=== PATIENT | female | born 1985 | race Hispanic/Latino ===

== ENCOUNTER 2018-05-15 09:44 | Observation (INO) | payer OTHER ==
--- NOTE | 2018-05-15 09:56 | ED PDOC ---
Arrival/HPI - General Chief Complaint: GI Problem Time Seen by Provider: 05/15/18 09:45 - History of Present Illness Narrative History of Present Illness (Text): 05/15/18 09:56 A 33 y/o w/ h/o bacterial infection, presents to the emergency department complaining of abdominal pain since yesterday. Patient reports associated watery diarrhea, chills and nausea. Patient notes laying down exacerbates pain and she has taken no medication for pain. Patient reports she and her family ate fast food near time of onset and her LNMP was last month. Patient also notes she is a smoker and smokes around 4 packs a week or 1 day each day. Patient denies any fever, shortness of breath, chest pain, dysuria, hematuria, vomiting, back pain, neck pain, headache, dizziness, or any other complaints. PMD: Dr. Ketty Gagnon Time/Duration: 24 hours (yesterday) Symptom Onset: Gradual Symptom Course: Unchanged Quality: Throbbing Activities at Onset: Light Context: Home Past Medical History - Provider Review Nursing Documentation Reviewed: Yes - Infectious Disease Hx of Infectious Diseases: None - Reproductive Menopause: No - Psychiatric Hx Substance Use: No - Surgical History Hx Cardiac Catheterization: Yes - Anesthesia Hx Anesthesia Reactions: No Family/Social History - Physician Review Nursing Documentation Reviewed: Yes Family/Social History: Unknown Family HX Smoking Status: Never Smoked Hx Alcohol Use: No Hx Substance Use: No Allergies/Home Meds Allergies/Adverse Reactions: Allergies No Known Allergies Allergy (Verified 01/01/16 18:11) Home Medications: Home Meds Medication Instructions Recorded Confirmed No Known Home Med 01/01/16 05/15/18 Review of Systems - Physician Review All systems were reviewed & negative as marked: Yes - Review of Systems Constitutional: Night Sweats. absent: Fevers Respiratory: absent: SOB Cardiovascular: absent: Chest Pain Gastrointestinal: Abdominal Pain, Diarrhea, Nausea. absent: Vomiting Genitourinary Female: absent: Dysuria, Hematuria, Urine Output Changes Musculoskeletal: absent: Back Pain, Neck Pain Neurological: absent: Headache, Dizziness Physical Exam Vital Signs Reviewed: Yes Vital Signs Temp Pulse Resp BP Pulse Ox 05/15/18 11:44 98 F 83 18 111/71 98 05/15/18 09:46 98.4 F 102 H 18 132/90 99 Temperature: Afebrile Blood Pressure: Normal Pulse: Tachycardic Respiratory Rate: Normal Appearance: Positive for: Well-Appearing, Non-Toxic, Comfortable Pain Distress: None Mental Status: Positive for: Alert and Oriented X 3 - Systems Exam Head: Present: Atraumatic, Normocephalic Pupils: Present: PERRL Extroacular Muscles: Present: EOMI Conjunctiva: Present: Normal Mouth: Present: Moist Mucous Membranes Neck: Present: Normal Range of Motion Respiratory/Chest: Present: Clear to Auscultation, Good Air Exchange. No: Respiratory Distress, Accessory Muscle Use Cardiovascular: Present: Regular Rate and Rhythm, Normal S1, S2. No: Murmurs Abdomen: Present: Tenderness (+epigastric area). No: Distention, Peritoneal Signs, Rebound, Guarding, McBurney's Point Tender, Rovsing's Sign Present, Hernias, Feeding Tubes, Ostomy Tubes, Mass/Organomegaly Back: Present: Normal Inspection Upper Extremity: Present: Normal Inspection. No: Cyanosis, Edema Lower Extremity: Present: Normal Inspection. No: Edema Neurological: Present: GCS=15, CN II-XII Intact, Speech Normal Skin: Present: Warm, Normal Color, Diaphoretic. No: Dry, Rashes, Erythematous, Induration, Hot, Cold, Pale, Laceration, Abscess, Abrasion Psychiatric: Present: Alert, Oriented x 3, Normal Insight, Normal Concentration Medical Decision Making ED Course and Treatment: 05/15/18 10:00 Impression: 33 year old female presents to the emergency department for abdominal pain. Differential Diagnosis included but are not limited to: - Cholitis - Gastritis - H. Pylori infection - Pancreatitis Plan: -- CT of Abdomen & Pelvis with contrast -- Labs -- Maalox -- Cipro IVPB's -- Pepcid -- Flagyl IVPB's -- Reglan -- Morphine -- IV Fluids -- CDiff toxin and antigen -- Stool culture -- POC urine test -- Urinalysis -- Reassess and disposition Prior Visits: Notes and results from previous visits were reviewed. Progress Notes: 05/15/18 12:15 Dictator: Scott Reece MD Procedure: CT Abdomen and Pelvis with contrast Impression: No acute findings. 05/15/18 12:[address] Toledo, who is aware patient is in emergency room and accepts patient for observation. - Lab Interpretations Lab Results: 05/15/18 10:15 05/15/18 10:15 Lab Results 05/15/18 10:15: Sodium 143, Potassium 5.0, Chloride 105, Carbon Dioxide 24, Anion Gap 20, BUN 14, Creatinine 0.7, Est GFR ( Amer) > 60, Est GFR (Non- Af Amer) > 60, Random Glucose 125 H, Calcium 10.5, Total Bilirubin 0.5, AST 31, ALT 40, Alkaline Phosphatase 119, Total Protein 9.4 H, Albumin 5.2 H, Globulin 4.2, Albumin/Globulin Ratio 1.2 05/15/18 10:15: WBC 15.3 H D, RBC 5.30, Hgb 15.1, Hct 45.4, MCV 85.7, MCH 28.5, MCHC 33.3, RDW 13.5, Plt Count 399, MPV 9.4, Gran % 84.4 H, Lymph % (Auto) 11.3 L, [place] % (Auto) 3.9, Eos % (Auto) 0.3 L, Baso % (Auto) 0.1, Gran # 12.94 H, Lymph # (Auto) 1.7, [place] # (Auto) 0.6, Eos # (Auto) 0.0, Baso # (Auto) 0.02 - RAD Interpretation Radiology Orders: 05/15/18 10:11 ABDOMEN & PELVIS [ABD & PELVIS IV CONTRAST ONLY] [CT] Stat - Medication Orders Current Medication Orders: Ciprofloxacin (Cipro 400mg/200ml Dsw) 400 mg in 200 mls @ 133.3 mls/hr IVPB STAT STA PRN Reason: Protocol Stop: 05/15/18 12:37 Discontinued Medications Al Hydrox/Mg Hydrox/Simethicone (Maalox Plus 30 Ml) 30 ml PO STAT STA Stop: 05/15/18 10:00 Last Admin: 05/15/18 10:20 Dose: 30 ml Famotidine (Pepcid) 20 mg IVP STAT STA Stop: 05/15/18 10:00 Last Admin: 05/15/18 10:21 Dose: 20 mg IVP Administration Document 05/15/18 10:21 [facility] (Rec: 05/15/18 10:21 [facility] [id number]) Charges for Administration # of IVP Administrations 1 Metoclopramide HCl 10 mg/ (Sodium Chloride) 52 mls @ 200 mls/hr IV STAT STA Stop: 05/15/18 10:13 Last Admin: 05/15/18 11:31 Dose: 200 mls/hr eMAR Start Stop Document 05/15/18 11:31 [employer] (Rec: 05/15/18 11:32 [employer] [id number]) Intravenous Solution Start Date 05/15/18 Start Time 11:32 End Date 05/15/18 End time 11:47 Total Infusion Time 15 Sodium Chloride (Sodium Chloride 0.9%) 1,000 mls @ 999 mls/hr IV .Q1H1M STA Stop: 05/15/18 10:58 Last Admin: 05/15/18 10:20 Dose: 999 mls/hr eMAR Start Stop Document 05/15/18 10:20 [employer] (Rec: 05/15/18 10:20 [employer] [id number]) Intravenous Solution Start Date 05/15/18 Start Time 10:20 End Date 05/15/18 End time 11:20 Total Infusion Time 60 Metronidazole (Flagyl) 500 mg in 100 mls @ 100 mls/hr IVPB STAT STA PRN Reason: Protocol Stop: 05/15/18 12:06 Last Admin: 05/15/18 11:50 Dose: 100 mls/hr eMAR Start Stop Document 05/15/18 11:50 [facility] (Rec: 05/15/18 11:51 [employer] [id number]) Intravenous Solution Start Date 05/15/18 Start Time 11:50 End Date 05/15/18 End time 12:50 Total Infusion Time 60 Morphine Sulfate (Morphine) 4 mg IVP STAT STA Stop: 05/15/18 10:13 Last Admin: 05/15/18 10:20 Dose: 4 mg MAR Pain Assessment Document 05/15/18 10:20 [employer] (Rec: 05/15/18 10:21 [employer] [id number]) Pain Reassessment Is this a pain reassessment? No IVP Administration Document 05/15/18 10:20 [employer] (Rec: 05/15/18 10:21 [employer] [id number]) Charges for Administration # of IVP Administrations 1 Re-Assess: MAR Pain Assessment Document 05/15/18 11:20 [employer] (Rec: 05/15/18 11:34 [employer] [id number]) Pain Reassessment Is this a pain reassessment? Yes Presence of Pain Presence of Pain No - Scribe Statement The provider has reviewed the documentation as recorded by the Scribe María Cortes All medical record entries made by the Scribe were at my direction and personally dictated by me. I have reviewed the chart and agree that the record accurately reflects my personal performance of the history, physical exam, medical decision making, and the department course for this patient. I have also personally directed, reviewed, and agree with the discharge instructions and disposition. Disposition/Present on Arrival - Present on Arrival Any Indicators Present on Arrival: No History of DVT/PE: No History of Uncontrolled Diabetes: No Urinary Catheter: No History of Decub. Ulcer: No History Surgical Site Infection Following: None - Disposition Have Diagnosis and Disposition been Completed?: Yes Diagnosis: Gastroenteritis Disposition Time: 12:22 Patient Plan: Observation Patient Problems: Current Active Problems Problem Status Onset Gastroenteritis Acute Condition: STABLE Discharge Instructions (ExitCare): Gastroenteritis (ED) Referrals: Ketty Gagnon DO [Primary Care Provider] - Follow up with primary Forms: [email or web address] (Qatari)
[2018-05-15] MEDS ORDERED: Sodium Chloride 0.9% 1,000 ML IV STA (09:58)
[2018-05-15] MEDS ORDERED: Alum-Mag Hydrox-Simethicone Susp (30 mL) PO STA (09:59)
[2018-05-15] MEDS ORDERED: Morphine 4 mg/ml ISec IVP STA ×2 (10:12→12:59)
[2018-05-15 10:34] LABS: BASO # 0.02 K/mm3 (0.0-2.0); BASO % 0.1 % (0.0-3.0); EOS % 0.3 % (1.5-5.0); GRAN # 12.94 (1.4-6.5); GRAN % 84.4 % (50.0-68.0); HEMOGLOBIN 15.1 g/dL (12.0-16.0); LYMPH # 1.7 (1.2-3.4); LYMPH % 11.3 % (22.0-35.0); MEAN CELL VOLUME 85.7 fl (80.0-105.0); MEAN CORPUSCULAR HEMOGLOBIN 28.5 pg (25.0-35.0); MEAN CORPUSCULAR HGB CONC 33.3 g/dl (31.0-37.0); MEAN PLATELET VOLUME 9.4 fl (7.0-11.0); MONO # 0.6 (0.1-0.6); MONO % 3.9 % (1.0-6.0); RBC 5.3 10^6/uL (3.5-6.1); RED CELL DISTRIBUTION WIDTH 13.5 % (11.5-14.5); WHITE BLOOD COUNT 15.3 10^3/ul (4.5-11.0)
[2018-05-15 10:36] LABS: ALB/GLOB RATIO 1.2 (1.1-1.8); ALBUMIN 5.2 g/dL (3.0-4.8); ALT/SGPT 40 U/L (7-56); AST/SGOT 31 U/L (14-36); BLOOD UREA NITROGEN 14 mg/dL (7-21); CALCIUM 10.5 mg/dL (8.4-10.5); GFR NON-AFRICAN AMERICAN > 60
[2018-05-15] MEDS ORDERED: Iohexol 350 MG/100 ML VIAL ONE (10:40)
[2018-05-15] MEDS ORDERED: metroNIDAZOLE IV 500 mg/100 ml 500 MG/100 ML BAG IVPB STA (11:07)
[2018-05-15] MEDS ORDERED: Ciprofloxacin 400mg/200ml D5W 400 MG/200 ML BAG IVPB STA (11:07)
--- NOTE | 2018-05-15 12:11 | CT ---
Date of service: 05/15/2018 PROCEDURE: CT Abdomen and Pelvis with contrast HISTORY: h/o colitis COMPARISON: None. TECHNIQUE: Contrast dose: 100 cc of Omni 350 Radiation dose: Total exam DLP = 732 mGy-cm. This CT exam was performed using one or more of the following dose reduction techniques: Automated exposure control, adjustment of the mA and/or kV according to patient size, and/or use of iterative reconstruction technique. FINDINGS: LOWER THORAX: Unremarkable. LIVER: Unremarkable. No gross lesion or ductal dilatation. GALLBLADDER AND BILE DUCTS: Unremarkable. PANCREAS: Unremarkable. No gross lesion or ductal dilatation. SPLEEN: Unremarkable. ADRENALS: Unremarkable. No mass. KIDNEYS AND URETERS: Unremarkable. No hydronephrosis. No solid mass. VASCULATURE: Unremarkable. No aortic aneurysm. BOWEL: Unremarkable. No obstruction. No gross mural thickening. Fluid filled large and small bowel loops are seen. APPENDIX: Normal appendix. PERITONEUM: Unremarkable. No free fluid. No free air. LYMPH NODES: Unremarkable. No enlarged lymph nodes. BLADDER: Unremarkable. REPRODUCTIVE: Unremarkable. BONES: No acute fracture. OTHER FINDINGS: None. IMPRESSION: No acute findings
[2018-05-15 16:30] VITALS: BMI 33.6
[2018-05-15] MEDS ORDERED: Pneumococcal 23-Valent Vaccine IM ONE (16:31)
[2018-05-15] MEDS: Dextrose 5%/0.45% NS 1,000 ML IV SCH (18:15)
[2018-05-15] MEDS ORDERED: Morphine 2 mg/ml ISec IVP ONE (20:27)
[2018-05-15] MEDS: metroNIDAZOLE IV 250mg/50 ml 250 MG/50 ML BAG IV SCH (20:59)
[2018-05-15] MEDS ORDERED: Morphine 4 mg/ml ISec IVP PRN (22:11)
[2018-05-16] MEDS: Dextrose 5%/0.45% NS 1,000 ML IV SCH (00:26)
[2018-05-16] MEDS: metroNIDAZOLE IV 250mg/50 ml 250 MG/50 ML BAG IV SCH ×2 (05:01→14:38)
--- NOTE | 2018-05-16 05:29 | HP ---
Copied To: Yoselyn Toledo MD Attending MD: Yoselyn Toledo MD HISTORY OF PRESENT ILLNESS: The patient is 33-year-old female who came to emergency room because of abdominal pain along with diarrhea and nausea. The patient states they ate out with her family yesterday and since then she was having some abdominal discomfort that led to intractable nausea and diarrhea. She was unable to hold food and having watery bowel movement; so, she reported to her PMD, who advised her to come to emergency room. Complaining of feeling weak and having chills. PAST MEDICAL HISTORY: Significant for chronic back pain. ALLERGIES: SHE IS NOT ALLERGIC TO ANY MEDICATION. MEDICATION AT HOME: She is on Ultracet and Flexeril as needed. SOCIAL HISTORY: She does smoke and socially drinks. REVIEW OF SYSTEMS: Significant for abdominal discomfort, nausea and diarrhea. PHYSICAL EXAMINATION: GENERAL: She is awake, alert, oriented, communicative. VITAL SIGNS: She is afebrile, pulse 73, respirations 18, blood pressure 119/73. LUNGS: Bilateral fair airflow. No rhonchi or crackles. HEART: S1 and S2 audible. ABDOMEN: Soft, nontender. Slight epigastric discomfort. NEUROLOGIC: She is awake, alert, oriented, communicative. LABORATORY EXAM: WBC is 15.3, hemoglobin 15, hematocrit 45, platelet 399. Chemistry: Sodium 143, potassium 5, chloride 105, CO2 of 24, BUN 14, creatinine 0.7, blood sugar 125. ASSESSMENT: 1. Gastroenteritis. 2. Dehydration. 3. Leukocytosis. 4. History of back pain. PLAN: We will continue the patient on IV fluid. She has been started on metronidazole. Give her analgesic as needed. I will continue her on Protonix and we will follow up her CBC and CMP in a.m. Yoselyn Toledo MD
[2018-05-16 07:14] LABS: ALB/GLOB RATIO 1.1 (1.1-1.8); ALBUMIN 3.4 g/dL (3.0-4.8); ALT/SGPT 38 U/L (7-56); AST/SGOT 30 U/L (14-36); BLOOD UREA NITROGEN 5 mg/dL (7-21); CALCIUM 8.1 mg/dL (8.4-10.5); GFR NON-AFRICAN AMERICAN > 60
[2018-05-16 07:37] LABS: BASO # 0.01 K/mm3 (0.0-2.0); BASO % 0.1 % (0.0-3.0); EOS # 0.4 (0.0-0.7); EOS % 4.9 % (1.5-5.0); GRAN # 5.12 (1.4-6.5); GRAN % 60.7 % (50.0-68.0); HEMOGLOBIN 11.6 g/dL (12.0-16.0); LYMPH # 2.2 (1.2-3.4); LYMPH % 26.5 % (22.0-35.0); MEAN CELL VOLUME 86.9 fl (80.0-105.0); MEAN CORPUSCULAR HEMOGLOBIN 28.6 pg (25.0-35.0); MEAN CORPUSCULAR HGB CONC 32.9 g/dl (31.0-37.0); MEAN PLATELET VOLUME 9.5 fl (7.0-11.0); MONO # 0.7 (0.1-0.6); MONO % 7.8 % (1.0-6.0); RBC 4.06 10^6/uL (3.5-6.1); RED CELL DISTRIBUTION WIDTH 13.6 % (11.5-14.5); WHITE BLOOD COUNT 8.4 10^3/ul (4.5-11.0)
[2018-05-16 14:46] VITALS: BP 120/78; PULSE 83; RESP 18; TEMP 98.1; O2SAT 98
--- NOTE | 2018-05-17 08:08 | DS ---
Copied To: Yoselyn Toledo MD Attending MD: Yoselyn Toledo MD HISTORY OF PRESENT ILLNESS: The patient is 33 years old, seen and examined. Doing much better. Abdominal pain has almost gone, did not vomit, only had one semi-solid bowel movement, ready to go to eat. She states she is feeling hungry now. PHYSICAL EXAMINATION: VITAL SIGNS: She is afebrile, pulse 83, respirations 18, blood pressure 120/78. LUNGS: Bilateral good airflow. No rhonchi or crackle. HEART: S1 and S2 audible. ABDOMEN: Soft. Slight epigastric discomfort. No rebound. No guarding. NEUROLOGICAL: She is awake, alert, oriented, communicative. LABORATORY EXAM: WBC is 8.4, hemoglobin 11.6, hematocrit 35.6, platelet 295. Chemistry: Sodium 140, potassium 3.6, chloride 105, CO2 26, BUN 5, creatinine 0.6. Blood sugar of 102. Calcium is 8.3. DIAGNOSTIC DATA: CT scan of the abdomen and pelvis is negative. ASSESSMENT AND PLAN: 1. Gastroenteritis. 2. Dehydration. 3. Electrolyte imbalance. 4. Leukocytosis, improved. PLAN: We will advance the patient's diet. Patient tolerated and will be discharged later on today. She is advised to follow up with her PMD and she is advised to stay on the liquid and soft diet for next 24 to 48 hours and if the condition gets worse or symptoms recur, will come back to Emergency Room. Yoselyn Toledo MD
== END 2018-05-16 16:03 | disposition home or self-care (01) ==
LOC: ED 09:44 → ERH 12:23 → 5RNO 14:44
PROVIDERS: ADMIT Internal Medicine; ATTEND Internal Medicine
DX: K52.9 Noninfective gastroenteritis and colitis, unspecified (principal); E86.0 Dehydration; E87.8 Other disorders of electrolyte and fluid balance, not elsewhere classified; F17.200 Nicotine dependence, unspecified, uncomplicated
CPT/HCPCS: 36415; 74177; 80053; 85025; 96361; 96365; 96366; 96367; 96375; 96376; 99285; C9113; G0378; J0744; J2270; J2405; J2765; J7030; J7042; Q9967